=== PATIENT | female | born 1960 | race Caucasian/White ===

== ENCOUNTER → 2016-03-31 | Day surgery (SDC) | payer BC, OTHER ==
[~2016-03-31] VITALS: Ht 162.6 cm; Wt 90.5 kg
[~2016-03-31] MED LIST: ACETAMINOPHEN 1000 MG/100 ML VIAL IV ONE; BACITRACIN TOP OINT 15 GM TUBE ONE; BUPIVACAINE HCL PF 0.5% 30 ML VIAL ONE; DIOV80TA4 PO; DO NOT ADM ANY ANTICOAGULANT DRUGS XX PRN; ERGO1CAP10 PO; GLIM4TAB PO; HYDROmorphone HCL PF 1 MG/ML VIAL IV PUSH PRN; INSULIN HUMAN REGULAR 1,000 UNITS/10 ML VIAL SQ PRN; LACTATED RINGER'S 1000 ML INJ 1,000 ML IV ONE; LACTATED RINGER'S 1000 ML IV SCH; LANTINJ SQ; LEVO175T2 PO; LIDOCAINE HCL 1% 50 ML VIAL ONE; METF1000 PO; METOPROLOL TARTRATE 25 MG TAB PO PRN; NOVOINJ2 SQ; NRDRIP SQ; ONDANSETRON HCL 4 MG/2 ML VIAL IV PUSH ONE; ONDANSETRON HCL 4 MG/2 ML VIAL IV PUSH PRN; PROPOFOL 200 MG/20 ML AMP IV ONE; SIMV20TA PO; SODIUM CHLORID 0.9% 500 ML IV SCH; SODIUM CHLORIDE 0.9% INJ 100 ML ONE; ceFAZolin INJ 1,000 MG VIAL ONE
[2016-03-31 13:24] VITALS: BP 162/94; PULSE 76; RESP 16; TEMP 98.8; O2SAT 97
[2016-03-31 17:25] VITALS: BP 133/81; PULSE 60; RESP 16; TEMP 97.3; O2SAT 97
--- NOTE | 2016-03-31 21:33 | EKG ---
Date Performed: 03/31/2016 Time Performed: 12:59:51 PTAGE: 55 years EKG: Sinus rhythm VOLTAGE CRITERIA FOR LVH ABNORMAL ECG NO PREVIOUS TRACING DOCTOR: Curt Godoy Interpretating Date/Time 03/31/2016 21:32:02
--- NOTE | 2016-04-01 19:07 | MP ---
cc: EMETERIO RITTER DATE OF SURGERY 03/31/16 PREOPERATIVE DIAGNOSIS Right carpal tunnel syndrome POSTOPERATIVE DIAGNOSIS Right carpal tunnel syndrome PROCEDURE Right carpal tunnel release. SURGEON Dr. Valentina Ritter ANESTHESIA General and local TOURNIQUET TIME 14 minutes at 250 mmHg INDICATIONS FOR PROCEDURE Guillermina Gallardo is a 55-year-old left-hand dominant female with history of diabetes with an A1c approximately eight who presents with paresthesias in the median nerve distribution bilaterally, right greater than left. Dr. Persaud recommended therapy and cervical epidural injections for her cervical spine. EMG nerve conduction study showed right carpal tunnel syndrome. Treatment options were discussed with the patient. She elected to proceed with surgical intervention. Risks were explained but limited to the wound complications, infection, persistent paresthesias, need for additional surgeries and she elected to proceed. At this time, she did not report any triggering. DESCRIPTION OF PROCEDURE The patient was identified in the preoperative holding area and the correct extremity was marked. The patient was taken to the operating room where anesthesia was induced. The right upper extremity was prepped, draped in normal sterile fashion. The tourniquet was inflated to 250 mmHg for 14 minutes. A longitudinal incision was made in line with the radial border of the ring finger. Palmar fascia was identified and incised. Transverse carpal ligament was identified and incised under direct visualization. Care was taken to protect the ulnar nerve, ulnar artery as well as the palmar arch. The transverse carpal ligament was incised under direct visualization, this provided good decompression. Tourniquet was released. Hemostasis obtained. The wound was closed with nylon approximately 10 mL of 1% lidocaine without epinephrine was used to perform local anesthesia. I will see patient back in approximately 2 weeks. MD EVANGELISTA Moreno/ /5:18 PM /6:54 PM LESIA
== END | disposition home or self-care (01) ==
LOC: HSDC 11:45
PROVIDERS: ATTEND Orthopaedic Surgery
DX: G56.01 Carpal tunnel syndrome, right upper limb (principal); E11.9 Type 2 diabetes mellitus without complications; Z79.4 Long term (current) use of insulin
CPT/HCPCS: 01810; 64721; 82948; 93005; J0131; J0690; J2405; J3010; J7120